=== PATIENT | male | born 1950 | race Caucasian/White ===

== ENCOUNTER → 2016-09-18 09:09 | Day surgery (SDC) | payer MEDICARE ==
[~2016-09-18 09:09] MED LIST: Lidocaine 1% INJ* 10 MG/ML 30 ML SDV ONE
[2016-09-18 11:22] VITALS: BP 150/76
--- NOTE | 2016-09-18 23:22 | OP ---
DATE OF OPERATION: 09/18/16 [facility] DATE OF : 46 SURGEON: Alisha Chaves MD [employer] INSPECTOR: BALJIT Lira ANESTHESIA: Local. PRE-OP DIAGNOSIS: Chronic infection of the left long finger. POST-OP DIAGNOSIS: Chronic infection of the left long finger. OPERATIVE PROCEDURE: I and D of the left middle finger with bone biopsy and marsupialization. ESTIMATED BLOOD LOSS: Zero. TOURNIQUET TIME: About 10 minutes. INDICATIONS FOR PROCEDURE: Justin is a 65-year-old man who has had drainage, pain, swelling, and erythema in his left middle finger since last summer. He has had a couple of courses of antibiotics. They have not relieved the symptoms. He does not recall any injury. He presents for I and D and cultures. DESCRIPTION OF PROCEDURE: The patient was brought to the operating room, was given a local anesthetic with 10 cc of 1% plain lidocaine. The skin of his left hand and forearm was prepped and draped in the usual sterile fashion. The hand and forearm were exsanguinated and the tourniquet elevated to 250 mmHg. A longitudinal incision was made on the radial border of the distal phalanx of the middle finger. We dissected it sharply down to the bone. There was no purulent material. Bone biopsy was obtained and sent for cultures. Also cultures including aerobic, anaerobic, and fungal were sent. This was then irrigated with a liter of saline. A wedge of tissue just proximal to the nail fold was removed skin depth only and sent also for pathology. This wound was left open and also irrigated with a liter of saline. The radial incision was closed with a single 4-0 nylon suture. Then, the wound was dressed with Xeroform, 4x4, Webril, and Coban. The patient will start warm soapy water soaks tomorrow. The patient tolerated the procedure well and was brought to the recovery room in good condition. [id number]/[facility] #: [id number] [facility]ITALMore[facility]
== END | disposition home or self-care (01) ==
LOC: OREAST 09:09
PROVIDERS: ATTEND Orthopaedic Surgery
DX: L03.012 Cellulitis of left finger (principal); Z87.891 Personal history of nicotine dependence
CPT/HCPCS: 87070; 87073; 87102; 87205; 88305